=== PATIENT | female | born 1965 | race African-American/Black ===

== ENCOUNTER 2021-10-08 13:29 | Emergency (ER) | payer OTHER ==
[~2021-10-08] VITALS: Ht 160 cm; Wt 72.5 kg
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
[2021-10-08 13:58] LABS: BASOPHILS % (AUTO) 1 % (0-10); EOSINOPHILS # (AUTO) 0.3 10^3/uL (0.0-0.3); EOSINOPHILS % (AUTO) 5 % (0-10); HEMATOCRIT 36 % (35-52); HEMOGLOBIN 11.6 g/dL (11.5-16.0); LYMPHOCYTES # (AUTO) 1.9 10^3/uL (1.0-4.0); LYMPHOCYTES % (AUTO) 32 % (12-44); MEAN CORPUSCULAR HEMOGLOBIN 29 pg (25-34); MEAN CORPUSCULAR HGB CONC 32 g/dL (32-36); MEAN CORPUSCULAR VOLUME 90 fL (80-99); MONOCYTES # (AUTO) 0.9 10^3/uL (0.0-1.0); MONOCYTES % (AUTO) 14 % (0-12); NEUTROPHILS # (AUTO) 2.8 10^3/uL (1.8-7.8); NEUTROPHILS % (AUTO) 47 % (42-75); PLATELET COUNT 157 10^3/uL (130-400)
[2021-10-08 14:19] LABS: SODIUM 135 MMOL/L (135-145)
[2021-10-08 14:20] LABS: ACETAMINOPHEN < 10 UG/ML (10-30); ALANINE AMINOTRANSFERASE 25 U/L (0-55); ALBUMIN 4.3 GM/DL (3.2-4.5); ALKALINE PHOSPHATASE 122 U/L (40-136); BILIRUBIN,TOTAL 0.5 MG/DL (0.1-1.0); BUN/CREATININE RATIO 14; CALCIUM 9.8 MG/DL (8.5-10.1); CARBON DIOXIDE 26 MMOL/L (21-32); CHLORIDE 98 MMOL/L (98-107); CREATININE SERUM 0.99 MG/DL (0.60-1.30); GFR ESTIMATED 68; GLUCOSE 232 MG/DL (70-105); POTASSIUM 4.2 MMOL/L (3.6-5.0); SALICYLATE < 0.3 MG/DL (5.0-20.0); TOTAL PROTEIN 7.8 GM/DL (6.4-8.2)
[2021-10-08] MEDS ORDERED: NS IV 1000 ML 1,000 ML IV STA (14:21)
[2021-10-08] MEDS ORDERED: IBUPROFEN 800 MG (MOTRIN) TAB PO STA (14:21)
[2021-10-08] MEDS ORDERED: ONDANSETRON 4 MG/2 ML (SDV) Z0FRAN IVP STA (14:21)
--- NOTE | 2021-10-08 14:23 | Diagnostic Imaging Report ---
EXAMINATION: CT head, face and CT cervical spine without contrast. TECHNIQUE: Multiple contiguous axial images were obtained through the face, brain and cervical spine without the use of intravenous contrast. Sagittal and coronal reformations through the cervical spine were then performed. All CT scans use one or more of the following dose optimizing techniques: automated exposure control, MA and/or KvP adjustment based on patient size and exam type or iterative reconstruction. HISTORY: Head, face and neck injury COMPARISON: None available. FINDINGS: The beltran-white matter differentiation is normal. No mass effect or midline shift. The ventricles are normal in size and configuration. Basilar cisterns are patent. There are no intra- or extra-axial fluid collections. There is no intracranial hemorrhage. The orbits are normal. Paranasal sinuses are normal. Mastoid air cells are clear. No soft tissue abnormality is seen. No osseus lesions or fractures are seen. No fracture is seen in the face. The nasal bones are normal. Mandible and maxillae are normal. Zygomatic arches are normal. Pterygoid plates are normal. No soft tissue abnormality is seen. The alignment of the cervical spine is normal. No fracture is seen. Vertebral body heights are normal. The craniocervical junction is normal. There is mild degenerative disease in the cervical spine. There is no spinal canal stenosis. No soft tissue abnormality is seen in the neck. Limited views of the superior thorax are normal. IMPRESSION: 1. No acute intracranial abnormality. 2. No cervical spine fracture. 3. No fracture in the face. Dictated by: Dictated on workstation # [id number]
[2021-10-08 14:33] LABS: BILIRUBIN,URINE NEGATIVE (NEGATIVE); CLARITY,URINE CLEAR; COLOR,URINE YELLOW; GLUCOSE, URINE (UA) NEGATIVE (NEGATIVE); KETONES,URINE NEGATIVE (NEGATIVE); LEUKOCYTE ESTERASE ,URINE NEGATIVE (NEGATIVE); NITRITE,URINE NEGATIVE (NEGATIVE); PROTEIN,URINE NEGATIVE (NEGATIVE)
[2021-10-08 14:36] LABS: BACTERIA,URINE TRACE /HPF; RBC,URINE 0-2 /HPF; WBC,URINE 0-2 /HPF
--- NOTE | 2021-10-08 14:36 | Diagnostic Imaging Report ---
EXAMINATION: CT chest, abdomen and pelvis without intravenous contrast. TECHNIQUE: Multiple contiguous axial images were obtained through the chest, abdomen and pelvis without intravenous contrast. All CT scans use one or more of the following dose optimizing techniques: automated exposure control, MA and/or KvP adjustment based on patient size and exam type or iterative reconstruction. HISTORY: Chest and abdomen injury COMPARISON: None available. FINDINGS: There is no edema or pneumonia. No pleural effusion. No pneumothorax. No suspicious nodules. There is no axillary or supraclavicular lymphadenopathy. There is no mediastinal lymphadenopathy. Heart size is normal. There are no coronary artery calcifications. No pericardial effusion. Aorta is normal in caliber. The liver is normal without focal lesion. There is no biliary ductal dilation. Gallbladder is normal. Pancreas is normal. Spleen is normal. Adrenal glands are normal. The kidneys are normal. There is no hydronephrosis. Urinary bladder is normal. Bowel is normal in caliber without obstruction or inflammation. There is a small fat-containing umbilical hernia. No free fluid or air. No abdominal or pelvic lymphadenopathy. Aorta is normal in caliber without aneurysm. There are no suspicious osseus lesions. IMPRESSION: 1. No acute traumatic injury in the chest, abdomen or pelvis. Dictated by: Dictated on workstation # [id number]
[2021-10-08 14:45] LABS: AMPHETAMINE SCREEN, URINE NEGATIVE (NEGATIVE); BARBITURATE SCREEN URINE NEGATIVE (NEGATIVE); BENZODIAZEPINES SCREEN URINE NEGATIVE (NEGATIVE); CANNABINOID SCREEN, URINE NEGATIVE (NEGATIVE); COCAINE SCREEN URINE NEGATIVE (NEGATIVE); METHADONE STAT NEGATIVE (NEGATIVE); OPIATE SCREEN URINE NEGATIVE (NEGATIVE); OXYCODONE STAT NEGATIVE (NEGATIVE); PROPOXYPHENE STAT NEGATIVE (NEGATIVE); TRICYCLIC ANTIDEPRESSANTS SCRE NEGATIVE (NEGATIVE)
[2021-10-08 15:36] VITALS: BP 109/56
== END 2021-10-08 15:45 | disposition home or self-care (01) ==
LOC: ER FS 13:31
DX: S00.83XA Contusion of other part of head, initial encounter (principal); R55 Syncope and collapse; B34.9 Viral infection, unspecified; R10.9 Unspecified abdominal pain; E11.9 Type 2 diabetes mellitus without complications; W17.89XA Other fall from one level to another, initial encounter
CPT/HCPCS: 36415; 70450; 70486; 71250; 72125; 74176; 80053; 80306; 81000; 82947; 83605; 85025; 87040; 93005; 93041; 99284; G0480 ×3; 80320; 80329

== ENCOUNTER 2022-06-15 21:23 | Emergency (ER) | payer OTHER ==
[~2022-06-15] VITALS: Ht 165.1 cm; Wt 74.2 kg
[2022-06-15] MEDS ORDERED: NS IV 1000 ML 1,000 ML IV STA (21:38)
[2022-06-15] MEDS ORDERED: DICYCLOMINE 10 MG/ML (BENTYL) 2 ML AMP IM STA (21:38)
[2022-06-15] MEDS ORDERED: KETOROLAC 15 MG/ML VIAL IVP STA (21:38)
--- NOTE | 2022-06-15 21:43 | ED Abdominal Pain ---
General Stated Complaint: R SIDE PAIN Source of Information: Patient, Spouse Exam Limitations: No Limitations NPO Since: 1999 History of Present Illness Date Seen by Provider: Jun 15, 2022 Time Seen by Provider: 21:25 Initial Comments 57 yo female presenting from home in [place], [place] due to complaint of sharp stabbing pain in RUQ x 3 days. Pain is sharp and stabbing and has been coming and going in intensity over the last 3 days. She has not noticed any worsening with eating or drinking. She states that if she holds in on her side it seems to help with her pain. She denies having pain like this previously. She denies having abdominal surgery in the past. She has tried taking ibuprofen for the pain as well as she took one of her husbands hydrocodone. She states that nothing has helped with the pain. She reports that Dr. Cortez was not available so she has not followed up with him about her symptoms. She did have vomiting 2 or 3 days ago. She denies any activity that triggered the pain. Timing/Duration: 2-3 Days Severity/Quality: Severe, Sharp, Stabbing Location: RUQ Radiation: No Radiation Activities at Onset: None Modifying Factors: Worsens With Movement, Worsens With Palpation Associated Symptoms: No Back Pain, No Chest Pain, No Diaphoresis, No Fever/Chills, No Fatigue, No Headache, No Heartburn; Nausea/Vomiting (x 1 episode of vomiting 3 days ago); No Rash, No Shortness of Air, No Swelling/Mass in Abdomen, No Syncope, No Weakness Allergies and Home Medications Allergies Coded Allergies: oxycodone (Verified Allergy, Intermediate, Itching, 10/08/21) Patient Home Medication List Home Medication List Reviewed: Yes Atorvastatin Calcium (Atorvastatin Calcium) 40 Mg Tablet, 40 MG PO DAILY, (Reported) Entered as Reported by: CLARENCE INMAN on 06/15/222225 Last Action: New Order Citalopram Hydrobromide (Citalopram HBr) 40 Mg Tablet, 40 MG PO DAILY, (Reported) Entered as Reported by: CLARENCE INMAN on 06/15/222225 Last Action: New Order Dicyclomine HCl (Dicyclomine HCl) 10 Mg Capsule, 10 MG PO QID PRN for abdominal pain/cramping Prescribed by: AKIRA LEMON on 1/52333 Ezetimibe (Ezetimibe) 10 Mg Tablet, 10 MG PO DAILY, (Reported) Entered as Reported by: CLARENCE INMAN on 06/15/222225 Last Action: New Order Hydrochlorothiazide (Hydrochlorothiazide) 25 Mg Tablet, 25 MG PO DAILY, (Reported) Entered as Reported by: CLARENCE INMAN on 06/15/222225 Last Action: New Order Insulin Glargine,Hum.rec.anlog (Lantus Solostar) 100 Unit/Ml (3 Ml) Insuln.pen, (Reported) Entered as Reported by: CLARENCE INMAN on 06/15/222225 Last Action: New Order Insulin Lispro (Humalog Kwikpen) 100 Unit/Ml Insuln.pen, (Reported) Entered as Reported by: CLARENCE INMAN on 06/15/222225 Last Action: New Order Lisinopril (Lisinopril) 10 Mg Tablet, 10 MG PO DAILY, (Reported) Entered as Reported by: CLARENCE INMAN on 06/15/222225 Last Action: New Order Metformin HCl (Metformin HCl) 1,000 Mg Tablet, 1,000 MG PO BID, (Reported) Entered as Reported by: CLARENCE INMAN on 06/15/222225 Last Action: New Order Metoprolol Succinate (Metoprolol Succinate) 25 Mg Tab.er.24h, 25 MG PO DAILY, (Reported) Entered as Reported by: CLARENCE INMAN on 06/15/222225 Last Action: New Order Review of Systems Review of Systems Constitutional: No chills, No fever EENTM: No Symptoms Reported Respiratory: No Symptoms Reported Cardiovascular: No Symptoms Reported Gastrointestinal: See HPI Genitourinary: Denies Burning, Denies Frequency, Denies Hematuria, Denies Pain Musculoskeletal: no symptoms reported Skin: No change in color, No rash Psychiatric/Neurological: Denies Numbness, Denies Paresthesia Endocrine: No Symptoms Reported Hematologic/Lymphatic: Denies Blood Clots Past Zqyslmt-Weszqz-Qjhzmo Hx Patient Social History Tobacco Use?: No Use of E-Cig and/or Vaping dev: No Substance use?: No Alcohol Use?: No Past Medical History Surgery/Hospitalization HX: brain surgery, HTN, DM Insulin dependent Respiratory: No Cardiac: Yes High Cholesterol, Hypertension Endocrine: Yes Diabetes, Insulin dep Physical Exam Vital Signs Vital Signs - First Documented 06/15/22 21:27 Temp 35.9 Pulse 96 Resp 18 B/P (MAP) 130/70 (90) Pulse Ox 97 O2 Delivery Room Air Capillary Refill : Height/Weight/BMI Height: '" Weight: lbs. oz. kg; 28.00 BMI Method: General Appearance: WD/WN, no apparent distress HEENT: pharynx normal Neck: non-tender, full range of motion, supple, normal inspection Respiratory: chest non-tender, lungs clear, normal breath sounds, no respiratory distress, no accessory muscle use Cardiovascular: normal peripheral pulses, regular rate, rhythm Gastrointestinal: normal bowel sounds, soft, no pulsatile mass; No distended, No guarding, No rebound; tenderness (RUQ abdominal pain without guarding or rebound) Rectal: deferred Extremities: normal range of motion, non-tender, normal capillary refill Back: no CVA tenderness Neurologic/Psychiatric: alert, oriented x 3 Skin: normal color, warm/dry; No rash Progress/Results/Core Measures Results/Orders Lab Results Laboratory Tests Test 06/15/22 21:30 06/15/22 21:37 Range/Units Urine Color YELLOW Urine Clarity CLEAR Urine pH 6.0 5-9 Urine Specific [place] 1.025 H 1.016-1.022 Urine Protein NEGATIVE NEGATIVE Urine Glucose (UA) NEGATIVE NEGATIVE Urine Ketones NEGATIVE NEGATIVE Urine Nitrite NEGATIVE NEGATIVE Urine Bilirubin NEGATIVE NEGATIVE Urine Urobilinogen 0.2 < = 1.0 MG/DL Urine Leukocyte Esterase 1+ H NEGATIVE Urine RBC (Auto) NEGATIVE NEGATIVE Urine RBC NONE /HPF Urine WBC 5-10 H /HPF Urine Squamous Epithelial Cells 0-2 /HPF Urine Crystals NONE /LPF Urine Bacteria TRACE /HPF Urine Casts NONE /LPF Urine Mucus NEGATIVE /LPF Urine Culture Indicated YES Urine Opiates Screen POSITIVE H NEGATIVE Urine Oxycodone Screen NEGATIVE NEGATIVE Urine Methadone Screen NEGATIVE NEGATIVE Urine Propoxyphene Screen NEGATIVE NEGATIVE Urine Barbiturates Screen NEGATIVE NEGATIVE Ur Tricyclic Antidepressants Screen NEGATIVE NEGATIVE Urine Phencyclidine Screen NEGATIVE NEGATIVE Urine Amphetamines Screen NEGATIVE NEGATIVE Urine Methamphetamines Screen NEGATIVE NEGATIVE Urine Benzodiazepines Screen NEGATIVE NEGATIVE Urine Cocaine Screen NEGATIVE NEGATIVE Urine Cannabinoids Screen NEGATIVE NEGATIVE White Blood Count 7.7 4.3-11.0 10^3/uL Red Blood Count 3.89 3.80-5.11 10^6/uL Hemoglobin 11.2 L 11.5-16.0 g/dL Hematocrit 34 L 35-52 % Mean Corpuscular Volume 86 80-99 fL Mean Corpuscular Hemoglobin 29 25-34 pg Mean Corpuscular Hemoglobin Concent 33 32-36 g/dL Red Cell Distribution Width 13.3 10.0-14.5 % Platelet Count 332 130-400 10^3/uL Mean Platelet Volume 10.5 9.0-12.2 fL Immature Granulocyte % (Auto) 0 % Neutrophils (%) (Auto) 53 42-75 % Lymphocytes (%) (Auto) 36 12-44 % Monocytes (%) (Auto) 7 0-12 % Eosinophils (%) (Auto) 4 0-10 % Basophils (%) (Auto) 1 0-10 % Neutrophils # (Auto) 4.0 1.8-7.8 10^3/uL Lymphocytes # (Auto) 2.7 1.0-4.0 10^3/uL Monocytes # (Auto) 0.5 0.0-1.0 10^3/uL Eosinophils # (Auto) 0.3 0.0-0.3 10^3/uL Basophils # (Auto) 0.0 0.0-0.1 10^3/uL Immature Granulocyte # (Auto) 0.0 0.0-0.1 10^3/uL Sodium Level 137 135-145 MMOL/L Potassium Level 4.3 3.6-5.0 MMOL/L Chloride Level 98 98-107 MMOL/L Carbon Dioxide Level 28 21-32 MMOL/L Anion Gap 11 5-14 MMOL/L Blood Urea Nitrogen 24 H 7-18 MG/DL Creatinine 0.90 0.60-1.30 MG/DL Estimat Glomerular Filtration Rate 75 BUN/Creatinine Ratio 27 Glucose Level 161 H 70-105 MG/DL Calcium Level 9.8 8.5-10.1 MG/DL Corrected Calcium 9.4 8.5-10.1 MG/DL Total Bilirubin 0.2 0.1-1.0 MG/DL Aspartate Amino Transf (AST/SGOT) 13 5-34 U/L Alanine Aminotransferase (ALT/SGPT) 14 0-55 U/L Alkaline Phosphatase 149 H 40-136 U/L Total Protein 7.9 6.4-8.2 GM/DL Albumin 4.5 3.2-4.5 GM/DL Lipase 109 H 8-78 U/L My Orders Orders - AKIRA LEMON MD Ua Culture If Indicated (06/15/22 21:26) Drug Screen Stat (Urine) (06/15/22 21:29) Comprehensive Metabolic Panel (06/15/22 21:37) Lipase (06/15/22 21:37) Ed Iv/Invasive Line Start (06/15/22 21:37) Cbc With Automated Diff (06/15/22 21:37) Ct Abdomen/Pelvis Wo (06/15/22 21:37) Ns Iv 1000 Ml (Sodium Chloride 0.9%) (06/15/22 21:38) Ketorolac Injection (Toradol Injection) (06/15/22 21:38) Dicyclomine Injection (Bentyl Injection) (06/15/22 21:38) Urine Culture (06/15/22 21:30) Rx-Dicyclomine Capsule (Rx-Bentyl Capsul (06/15/22 23:26) Fentanyl Inj (Sublimaze Injection) (06/15/22 23:28) Ondansetron Injection (Zofran Injectio (06/15/22 23:28) Vital Signs/I&O 06/15/22 06/15/22 21:27 23:45 Temp 35.9 Pulse 96 91 Resp 18 18 B/P (MAP) 130/70 (90) 112/64 Pulse Ox 97 97 O2 Delivery Room Air Room Air 06/16/22 00:00 Intake Total 1000 ml Balance 1000 ml Progress Progress Note #1: Progress Note Order labs with CBC, chemistry, lipase, urinalysis, urine drug screen. Order CT scan of the abdomen pelvis without contrast to evaluate for possible acute life threatening illness such as bowel perforation, pyelonephritis, kidney stone, cholelithiasis ,cholecystitis, colitis, diverticulitis, abdominal mass. Ordered Toradol 15 mg IV for pain and inflammation, Bentyl 20 mg IM for abdominal cramping pain and spasm, NS 1 L IVF bolus for hydration. 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 Progress Note #2: Progress Note Labs appear stable when compared to testing from October 08, 2021. Her CBC showed mild chronic anemia with a hemoglobin of 11.2 slightly down from her 11.6 on October 08, 2021. She did not have elevated white blood cell counts. Her chemistry profile showed mild increase in the BUN up to 24 that might indicate some dehydration. Her glucose was slightly elevated at 161 but she states she ate shortly before coming to the emergency department. Otherwise no acute significant abnormality seen on the tests. Her lipase was just above the upper limits of normal at 109. This might be secondary to pain or inflammation. Her urinalysis had increased specific gravity of 1.025 which again might go with some dehydration. She had 1+ leukocyte esterase with 5-10 white blood cells and trace bacteria so the urine culture was reflexed. Patient continues to deny any UTI symptoms and discussed option of treating with antibiotic or waiting until the culture comes back. Patient opted to wait until the urine culture came back to see if she really required any antibiotic or if this might be more contamination from the skin. Urine drug screen was positive for opiates as patient had admitted to taking hydrocodone from her spouse. Awaiting CT scan reading from radiologist. On my review of the images of her CT scan of the abdomen and pelvis without contrast she has no acute obstruction, blockage, free air, cholecystitis, appendicitis, colitis, diverticulitis. She has increased stomach contents and contracted gallbladder. She has increased bowel gas and stool throughout her colon. Progress Note #3: Progress Note On recheck of the patient she does report improvement in her pain and symptoms with treatment here in the ED. Counseled on test results and advised that her labs appeared stable other than some mild dehydration. Again we had reviewed that her urinalysis had trace amount of bacteria and white blood cells but patient continues to deny UTI symptoms so we will await urine culture to see if she has bacteria consistent with UTI growing out or if it might be more co ntaminant from the skin. If it does show a UTI and not a contaminant and once the culture result is back we will contact patient and PCP about starting an antibiotic. Radiologist read her CT scan and advised that she did not have appendicitis or cholecystitis. She does have increased food contents in her stomach. There is increased stool and gas without obstruction or blockage. Counseled patient on findings and recommended using the Bentyl or dicyclomine for spasms and cramping. Keep a log or diary of her diet to look for foods that might be contributing to her symptoms. Especially if she notes dairy or milk products causing the symptoms she may need to use a lactose-free milk product or choose plant-based milk. Reviewed with patient that I was not finding acute critical test results to indicate that she would need admission to the hospital. Especially with her pain improved and not seeing any surgical findings on the CT with stable labs I feel it is safe to treat her as an outpatient rather than need to admit her for right upper quadrant abdominal pain. Counseled that she might require further studies such as an ultrasound of her gallbladder, EGD, colonoscopy, nuclear medicine scan of her gallbladder. In the meantime keep a log or diary of her diet. Will prescribe a few Bentyl or dicyclomine pills to help with pain and spasms. Counseled on using Gas-X to try and decrease the amount of gas in her intestine and stool. Try using MiraLAX to help with clearing out the increased stool and gas. Drink plenty of fluids and stay well-hydrated. Check back with PCP about additional testing and evaluation. Counseled on return precautions and advised if she was having worsening symptoms or uncontrolled vomiting or fever over 101 Fahrenheit to be seen again. 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 Diagnostic Imaging Diagonstic Imaging: CT Plain Films/CT/US/NM/MRI: abdomen, pelvis Comments NAME: JASMIN MIRANDA [facility] REC#: [id number] PT STATUS: REG ER : 1965 PHYSICIAN: AKIRA LEMON MD ADMIT DATE: 06/15/22/ER FS Draft Date of Exam:06/15/22 CT ABDOMEN/PELVIS WO PROCEDURE: CT abdomen and pelvis without contrast. TECHNIQUE: Multiple contiguous axial images were obtained through the abdomen and pelvis without the use of intravenous contrast. Auto Exposure Controls were utilized during the CT exam to meet ALARA standards for radiation dose reduction. INDICATION: Right upper quadrant pain. COMPARISON: 10/08/2021. FINDINGS: The visualized lung bases are clear. The liver is enlarged. Otherwise, the unenhanced liver is unremarkable. The spleen is unremarkable. The adrenal glands are unremarkable. The unenhanced pancreas is unremarkable. The gallbladder is decompressed, but otherwise unremarkable. Bilateral kidneys and ureters are unremarkable. No aneurysmal dilatation of the abdominal aorta. The appendix is unremarkable. Small fat-containing umbilical hernia. No bowel obstruction or pneumatosis. The urinary bladder is predominantly decompressed, therefore not well evaluated. The uterus and adnexal structures are unremarkable. The stomach is significantly filled with enteric contents. Scattered osseous degenerative changes without acute osseous abnormality. IMPRESSION: Hepatomegaly. The stomach is distended with enteric contents. The gallbladder is decompressed. Additional findings as above. Dictated on workstation # [id number] Dict: 06/15/222202 Trans: 06/15/222225 [facility] [id number] Interpreted by: LINDA DIMAS MD Electronically signed by: Reviewed: Reviewed by Me Departure Impression Primary Impression: Colicky RUQ abdominal pain Additional Impression: Abdominal gas pain Disposition: HOME, SELF-CARE Condition: Improved Departure-Patient Inst. Decision time for Depature: 23:31 Referrals: MASSIMO CORTEZ MD (PCP) Primary Care Physician Patient Instructions: Abdominal Pain, Adult ED, Gas and Bloating Add. Discharge Instructions: Try taking the Dicyclomine (Bentyl) for abdominal cramping and gas pains. Keep a diary of your diet and foods you eat to see if there is anything that makes your symptoms worse. You might need to have an ultrasound or nuclear medicine test for your gallbladder if your symptoms continue. A scope or EGD to use a camera to look at the lining of your esophagus (food pipe) and stomach to check for ulcers or stomach irritation may also be needed. Try Miralax to help keep stools soft and regular. Call Dr. Cortez's office in am to see about arranging follow up for your symptoms. Scripts Dicyclomine HCl (Dicyclomine HCl) 10 Mg Capsule 10 MG PO QID PRN for abdominal pain/cramping for 7 Days, #28 CAP 0 Refills Prov: AKIRA LEMON MD 06/15/22 AKIRA LEMON MD Jun 15, 2022 21:43
[2022-06-15 21:45] LABS: BASOPHILS % (AUTO) 1 % (0-10); EOSINOPHILS # (AUTO) 0.3 10^3/uL (0.0-0.3); EOSINOPHILS % (AUTO) 4 % (0-10); HEMATOCRIT 34 % (35-52); HEMOGLOBIN 11.2 g/dL (11.5-16.0); LYMPHOCYTES # (AUTO) 2.7 10^3/uL (1.0-4.0); LYMPHOCYTES % (AUTO) 36 % (12-44); MEAN CORPUSCULAR HEMOGLOBIN 29 pg (25-34); MEAN CORPUSCULAR HGB CONC 33 g/dL (32-36); MEAN CORPUSCULAR VOLUME 86 fL (80-99); MEAN PLATELET VOLUME 10.5 fL (9.0-12.2); MONOCYTES # (AUTO) 0.5 10^3/uL (0.0-1.0); MONOCYTES % (AUTO) 7 % (0-12); NEUTROPHILS % (AUTO) 53 % (42-75); PLATELET COUNT 332 10^3/uL (130-400); WHITE BLOOD COUNT 7.7 10^3/uL (4.3-11.0)
[2022-06-15 21:48] LABS: BILIRUBIN,URINE NEGATIVE (NEGATIVE); CLARITY,URINE CLEAR; COLOR,URINE YELLOW; GLUCOSE, URINE (UA) NEGATIVE (NEGATIVE); KETONES,URINE NEGATIVE (NEGATIVE); LEUKOCYTE ESTERASE ,URINE 1+ (NEGATIVE); NITRITE,URINE NEGATIVE (NEGATIVE); PROTEIN,URINE NEGATIVE (NEGATIVE)
[2022-06-15 21:54] LABS: BACTERIA,URINE TRACE /HPF; SQUAMOUS EPITHELIAL CELL,UR 0-2 /HPF
[2022-06-15 21:58] LABS: OPIATE SCREEN URINE POSITIVE (NEGATIVE)
[2022-06-15 21:59] LABS: AMPHETAMINE SCREEN, URINE NEGATIVE (NEGATIVE); BARBITURATE SCREEN URINE NEGATIVE (NEGATIVE); BENZODIAZEPINES SCREEN URINE NEGATIVE (NEGATIVE); CANNABINOID SCREEN, URINE NEGATIVE (NEGATIVE); COCAINE SCREEN URINE NEGATIVE (NEGATIVE); METHADONE STAT NEGATIVE (NEGATIVE); OXYCODONE STAT NEGATIVE (NEGATIVE); PROPOXYPHENE STAT NEGATIVE (NEGATIVE); TRICYCLIC ANTIDEPRESSANTS SCRE NEGATIVE (NEGATIVE)
[2022-06-15 22:07] LABS: ALBUMIN 4.5 GM/DL (3.2-4.5); BILIRUBIN,TOTAL 0.2 MG/DL (0.1-1.0); CALCIUM 9.8 MG/DL (8.5-10.1); CREATININE SERUM 0.9 MG/DL (0.60-1.30); POTASSIUM 4.3 MMOL/L (3.6-5.0); TOTAL PROTEIN 7.9 GM/DL (6.4-8.2)
[2022-06-15] MEDS ORDERED: EZET10TA49 PO (22:26)
[2022-06-15] MEDS ORDERED: CITA40TA13 PO (22:26)
[2022-06-15] MEDS ORDERED: LISI10TA25 PO (22:26)
[2022-06-15] MEDS ORDERED: INSU100I10 (22:26)
[2022-06-15] MEDS ORDERED: INSU100I23 (22:26)
[2022-06-15] MEDS ORDERED: ATOR40TA70 PO (22:26)
[2022-06-15] MEDS ORDERED: HYDR25TA4 PO (22:26)
[2022-06-15] MEDS ORDERED: METF-399 PO (22:26)
[2022-06-15] MEDS ORDERED: MTP25TSR PO (22:26)
--- NOTE | 2022-06-15 22:27 | Diagnostic Imaging Report ---
PROCEDURE: CT abdomen and pelvis without contrast. TECHNIQUE: Multiple contiguous axial images were obtained through the abdomen and pelvis without the use of intravenous contrast. Auto Exposure Controls were utilized during the CT exam to meet ALARA standards for radiation dose reduction. INDICATION: Right upper quadrant pain. COMPARISON: 10/08/2021. FINDINGS: The visualized lung bases are clear. The liver is enlarged. Otherwise, the unenhanced liver is unremarkable. The spleen is unremarkable. The adrenal glands are unremarkable. The unenhanced pancreas is unremarkable. The gallbladder is decompressed, but otherwise unremarkable. Bilateral kidneys and ureters are unremarkable. No aneurysmal dilatation of the abdominal aorta. The appendix is unremarkable. Small fat-containing umbilical hernia. No bowel obstruction or pneumatosis. The urinary bladder is predominantly decompressed, therefore not well evaluated. The uterus and adnexal structures are unremarkable. The stomach is significantly filled with enteric contents. Scattered osseous degenerative changes without acute osseous abnormality. IMPRESSION: Hepatomegaly. The stomach is distended with enteric contents. The gallbladder is decompressed. Additional findings as above. Dictated by: Dictated on workstation # [id number]
[2022-06-15] MEDS ORDERED: RX-DICYCLOMINE 10 MG (BENTYL) CAP PPK#4 PO STA (23:26)
[2022-06-15] MEDS ORDERED: ONDANSETRON 4 MG/2 ML (SDV) Z0FRAN IVP STA (23:28)
[2022-06-15] MEDS ORDERED: fentaNYL INJ 100 MCG/2 ML AMP IVP STA (23:28)
[2022-06-15] MEDS ORDERED: DICY10CA12 PO (23:34)
[2022-06-15 23:45] VITALS: BP 112/64
== END 2022-06-15 23:48 | disposition home or self-care (01) ==
LOC: EDUNIT# 21:23 → ER FS 21:25
DX: R10.11 Right upper quadrant pain (principal); R14.1 Gas pain; D64.9 Anemia, unspecified; R79.89 Other specified abnormal findings of blood chemistry; E11.9 Type 2 diabetes mellitus without complications; Z79.4 Long term (current) use of insulin
CPT/HCPCS: 36415; 74176; 80053; 80306; 81000; 83690; 85025; 87088